=== PATIENT | male | born 1965 | race Caucasian/White ===

== ENCOUNTER 2019-11-02 11:54 | Day surgery (SDC) | payer OTHER ==
[~2019-11-02] VITALS: Ht 177.8 cm; Wt 125.7 kg
[2019-11-02] VITALS (31 sets, daily range): BP systolic 116–149; BP diastolic 62–113
[2019-11-02] MEDS ORDERED: fentaNYL/PF 50MCG/1 ML 2ML syringe IV ONE ×2 (12:20→14:40)
[2019-11-02] MEDS ORDERED: atropine 0.1mg/ml 10ml syringe IV ONE (12:20)
[2019-11-02] MEDS ORDERED: MIDAZolam 5mg/ml 2ml vial IV ONE ×2 (12:20→14:40)
[2019-11-02] MEDS ORDERED: POTA10TA19 PO (12:24)
[2019-11-02] MEDS ORDERED: APIX5TAB3 PO (12:25)
[2019-11-02] MEDS ORDERED: CARV-50 PO (12:27)
[2019-11-02] MEDS ORDERED: ASPI81TA52 PO (12:27)
[2019-11-02] MEDS ORDERED: ALLO100T PO (12:28)
[2019-11-02] MEDS ORDERED: METF500T PO (12:29)
[2019-11-02] MEDS ORDERED: TORS20TA3 PO (12:30)
[2019-11-02] MEDS ORDERED: AMIO200T61 PO (12:30)
[2019-11-02] MEDS ORDERED: LOSA100T57 PO (12:32)
[2019-11-02 12:57] LABS: BASOPHILS # (AUTO) 0.1 X10'3 (0-0.2); BASOPHILS % (AUTO) 0.6 % (0-1); EOSINOPHILS # (AUTO) 0.4 X10'3 (0-0.9); EOSINOPHILS % (AUTO) 4.2 % (0-6); HEMATOCRIT 35.8 % (42.0-52.0); HEMOGLOBIN 12.1 g/dl (14.0-17.9); LYMPHOCYTES # (AUTO) 0.9 X10'3 (1.1-4.8); LYMPHOCYTES % (AUTO) 9.1 % (21-51); MEAN CORPUSCULAR HGB CONC 33.8 g/dL (33.0-36.5); MEAN CORPUSCULAR VOLUME 88.8 FL (78-98); MEAN PLATELET VOLUME 7.3 FL (7.4-10.4); MONOCYTES % (AUTO) 11.1 % (2-12); PLATELET COUNT 242 X10'3 (140-440); RED BLOOD COUNT 4.03 X10'6 (4.70-6.10); RED CELL DISTRIBUTION WIDTH 17.1 % (11.5-14.5); WHITE BLOOD COUNT 9.4 X10'3 (4.5-11.0)
[2019-11-02 13:06] LABS: ALBUMIN 3.3 G/DL (3.4-5.0); ANION GAP 10 (8-16); BLOOD UREA NITROGEN 43 MG/DL (7-18); BUN/CREATININE RATIO 24.4 (5.4-32.0); CHLORIDE 98 MMOL/L (99-107); CREATININE 1.76 MG/DL (0.60-1.10); GLUCOSE 137 MG/DL (70-104); MAGNESIUM 1.9 MG/DL (1.5-2.4); POTASSIUM 4.7 MMOL/L (3.5-5.1); SODIUM 133 MMOL/L (135-145); eGFR 40 ML/MIN
[2019-11-02 13:16] LABS: % IRON SATURATION 11 % (11-46); IRON 35 UG/DL (53-167); TOTAL IRON BINDING CAPACITY 310 UG/DL (259-388)
[2019-11-02] MEDS: metoprolol tartrate 1mg/ml inj IV SCH ×3 (14:20→14:45)
== END 2019-11-02 16:50 | disposition home or self-care (01) ==
LOC: SSTAY O 11:54
PROVIDERS: ATTEND Internal Medicine Cardiovascular Disease
DX: I48.19 Other persistent atrial fibrillation (principal); Z79.899 Other long term (current) drug therapy; Z79.82 Long term (current) use of aspirin
CPT/HCPCS: 36415; 80048; 83540; 83550; 83735; 85025; 85610; 92960; 93005; 94760; J0461; J2250; J3010; J3490

== ENCOUNTER 2020-06-20 09:10 | Day surgery (SDC) | payer OTHER ==
[2020-06-20] VITALS (9 sets, daily range): BP systolic 111–174; BP diastolic 64–96
[~2020-06-20] VITALS: Ht 177.8 cm; Wt 120.9 kg
[~2020-06-20 09:10] MED LIST: ALLO100T PO; AMIO200T61 PO; APIX5TAB3 PO; ASPI81TA52 PO; CARV-50 PO; LOSA100T57 PO; METF500T PO; POTA10TA19 PO; TORS20TA3 PO
[2020-06-20] MEDS ORDERED: diphenhydrAMINE 25mg capsule PO PRN (10:00)
[2020-06-20] MEDS ORDERED: normal saline 1,000 ML IV SCH (10:00)
[2020-06-20] MEDS ORDERED: heparin 1,000unit/ml 10ml vial 10 ML ONE (10:17)
[2020-06-20] MEDS ORDERED: iohexol 350 MG/ML 50ML vial IV ONE (10:17)
[2020-06-20] MEDS ORDERED: fentaNYL/PF 50MCG/1 ML 2ML syringe ONE ×2 (10:17→10:48)
[2020-06-20] MEDS ORDERED: iohexol 350MG/ML 100ml bottle IV ONE ×2 (10:17→11:04)
[2020-06-20] MEDS ORDERED: LIDOcaine 1% (10mg/ml)w/preservative injection 20ml MDV ONE (10:17)
[2020-06-20] MEDS ORDERED: midazolam 2 mg/2 ml injection ONE ×3 (10:17→10:48)
[2020-06-20] MEDS ORDERED: ATOR40TA PO (10:24)
[2020-06-20] MEDS ORDERED: CHLO25TA10 PO (10:24)
[2020-06-20] MEDS ORDERED: ALLO300T8 (10:24)
[2020-06-20] MEDS ORDERED: BUME1TAB8 PO (10:24)
[2020-06-20 10:25] LABS: BASOPHILS # (AUTO) 0.1 X10'3 (0-0.2); BASOPHILS % (AUTO) 0.8 % (0-1); EOSINOPHILS # (AUTO) 0.1 X10'3 (0-0.9); EOSINOPHILS % (AUTO) 1.3 % (0-6); HEMOGLOBIN 13.9 g/dl (14.0-17.9); MEAN CORPUSCULAR HEMOGLOBIN 32.7 PG (27.0-31.0); MEAN CORPUSCULAR HGB CONC 33.9 g/dL (33.0-36.5); MEAN CORPUSCULAR VOLUME 96.4 FL (78-98); MEAN PLATELET VOLUME 7.4 FL (7.4-10.4); MONOCYTES # (AUTO) 1.6 X10'3 (0-0.9); MONOCYTES % (AUTO) 15.6 % (2-12); NEUTROPHILS # (AUTO) 7.5 X10'3 (1.8-7.7); NEUTROPHILS % (AUTO) 72.3 % (42-75); PLATELET COUNT 157 X10'3 (140-440); RED BLOOD COUNT 4.25 X10'6 (4.70-6.10); RED CELL DISTRIBUTION WIDTH 13.9 % (11.5-14.5); WHITE BLOOD COUNT 10.3 X10'3 (4.5-11.0)
[2020-06-20] MEDS ORDERED: proCHLORperazine 10 MG/2 ml inj ONE (10:47)
[2020-06-20 10:54] LABS: PARTIAL THROMBOPLASTIN TIME 34 SECONDS (22-32)
[2020-06-20 10:56] LABS: ALANINE AMINOTRANSFERASE 38 U/L (12-78); ALKALINE PHOSPHATASE 83 IU/L (46-116); ANION GAP 8 (8-16); ASPARTATE AMINO TRANSFERASE 21 U/L (10-37); BILIRUBIN,TOTAL 1.1 MG/DL (0.1-1.0); BLOOD UREA NITROGEN 16 MG/DL (7-18); BUN/CREATININE RATIO 11.5 (5.4-32.0); CHLORIDE 99 MMOL/L (99-107); CREATININE 1.39 MG/DL (0.60-1.10); GLUCOSE 145 MG/DL (70-104); MAGNESIUM 1.7 MG/DL (1.5-2.4); SODIUM 135 MMOL/L (135-145); TOTAL CARBON DIOXIDE 27.6 MMOL/L (24-32); TOTAL PROTEIN 8.1 G/DL (6.4-8.2); eGFR 53 ML/MIN
[2020-06-20] MEDS ORDERED: diphenhydrAMINE 50 mg/ml inj ONE (11:09)
[2020-06-20] MEDS ORDERED: clopidogrel 300mg tablet ONE (11:20)
[2020-06-20] MEDS ORDERED: HYDROcodone/acetaminophen 10/325mg tab PO PRN (11:50)
[2020-06-20] MEDS ORDERED: ondansetron/PF 4mg/2ml inj IV PRN (11:50)
[2020-06-20] MEDS ORDERED: OXAZEpam 15mg capsule PO PRN (11:50)
[2020-06-20] MEDS ORDERED: normal saline 1000ml 1,000 ML IV SCH (11:50)
[2020-06-20] MEDS ORDERED: proCHLORperazine 10 MG/2 ml inj IV PRN (11:50)
[2020-06-20] MEDS ORDERED: acetaminophen 325mg tablet PO PRN (11:50)
[2020-06-20] MEDS ORDERED: HYDROcodone/acetaminophen 5mg/325mg tablet PO PRN (11:50)
== END 2020-06-20 15:04 | disposition home or self-care (01) ==
LOC: SSTAY O 09:10
PROVIDERS: ATTEND Internal Medicine Cardiovascular Disease
DX: I25.10 Atherosclerotic heart disease of native coronary artery without angina pectoris (principal); I42.9 Cardiomyopathy, unspecified; I48.91 Unspecified atrial fibrillation; I11.0 Hypertensive heart disease with heart failure; I50.9 Heart failure, unspecified; E11.9 Type 2 diabetes mellitus without complications; E78.5 Hyperlipidemia, unspecified
CPT/HCPCS: 80053; 82948; 83735; 85025; 85610; 85730; 93005; 93458; 99152; 99153; C1725; C1751; C1760; C1769; C1874; C1894; C9600; J0780; J1200; J1644; J2001; J2250; J3010; J7030; Q0163; Q9967; A4620